=== PATIENT | female | born 1980 | race Caucasian/White ===

== ENCOUNTER → 2016-06-06 | Outpatient (CLI) | payer OTHER ==
--- NOTE | 2016-06-06 14:43 | REP ---
LEFT KNEE SERIES, COMPLETE: 06/06/2016. Clinical history: Acute left knee pain. Findings: There are no prior studies. Marginal osteophytes are present at all joint margins and greater than I would expect for age. I do not see joint space narrowing, definite effusion, fracture, avulsion or subluxation. There is no loose body or osteochondral defect. Impression: 1. Tricompartment osteoarthritis without definite joint effusion, fracture, loose body or joint space narrowing. Signed by Brian Peacock MD 06/06/2016 07:40 P
== END ==
LOC: M LRY 13:04
PROVIDERS: ATTEND Nurse Practitioner Family
DX: M25.562 Pain in left knee (principal)